=== PATIENT | male | born 1975 | race Caucasian/White ===

== ENCOUNTER 2021-03-04 19:23 | Emergency (ER) | payer BC ==
[~2021-03-04] VITALS: Ht 182.9 cm; Wt 111.1 kg
[2021-03-04] MEDS ORDERED: TESSALON PERLE100 MG PO (20:57)
[2021-03-04] MEDS ORDERED: ZITHROMAX250 MG PO (20:57)
[2021-03-04 21:05] VITALS: BP 145/82
== END 2021-03-04 21:05 | disposition home or self-care (01) ==
LOC: FSED 19:40
DX: U07.1 COVID-19 (principal); J20.9 Acute bronchitis, unspecified; R05.9 Cough, unspecified; E11.9 Type 2 diabetes mellitus without complications
CPT/HCPCS: 71046; 99283